=== PATIENT | male | born 1950 | race Caucasian/White ===

== ENCOUNTER 2017-04-19 07:23 | Day surgery (SDC) | payer MEDICARE, MEDICAID ==
[2017-04-16 14:14] LABS: HEMATOCRIT 44.2 % (39.2-51.8); HEMOGLOBIN 14.6 g/dL (13.7-18.0); WHITE BLOOD COUNT 6.5 x10^3/uL (3.4-10)
[2017-04-16 14:23] LABS: ASPARTATE AMINO TRANSFERASE 12 U/L (15-37); BLOOD UREA NITROGEN 18 mg/dL (7-18)
[~2017-04-19] VITALS: Ht 185.4 cm; Wt 94.5 kg
[~2017-04-19 07:23] MED LIST: AMLO2.5T2 PO; ASPI-496 PO; CLON1PAT9 TD; DOCU250C9 PO; DOXA8TAB2 PO; FINA5TAB4 PO; LISI40TA PO; MAGN200T PO; MV-M1TAB3 PO; POTA10TA5 PO; SPIR50TA2 PO
[2017-04-19] MEDS ORDERED: LACTATED RINGERS 1,000 ML IV SCH (08:04)
[2017-04-19 08:20] VITALS: BP 161/95
[2017-04-19] MEDS ORDERED: FENTANYL PF 100 MCG/2ML ONE ×3 (09:01→10:38)
[2017-04-19] MEDS ORDERED: MIDAZOLAM 1 MG/ML, 2ML ONE (09:02)
[2017-04-19] MEDS ORDERED: PROPOFOL 10 MG/ML, 20ML ONE (09:02)
[2017-04-19] MEDS ORDERED: NEOSTIGMINE 1 MG/ML, 10ML ONE (09:04)
[2017-04-19] MEDS ORDERED: ROCURONIUM 10 MG/ML,10ML ONE (09:04)
[2017-04-19] MEDS ORDERED: GLYCOPYRROLATE 0.4 MG/2 ML, 2ML ONE (09:05)
[2017-04-19] MEDS ORDERED: CEFOTETAN 2 GM ONE (09:46)
[2017-04-19] MEDS ORDERED: ACETAMINOPHEN 325 MG TABLET PO PRN (10:00)
[2017-04-19] MEDS ORDERED: PROMETHAZINE 25 MG/ML, 1ML IV PRN (10:00)
[2017-04-19] MEDS ORDERED: LABETALOL 5MG/ML, 20ML IV PRN (10:00)
[2017-04-19] MEDS ORDERED: hydrALAzine 20 MG/ML, 1ML IV PRN (10:00)
[2017-04-19] MEDS ORDERED: HYDROmorphone 1 MG/ML, 1ML IV PRN (10:00)
[2017-04-19] MEDS ORDERED: MEPERIDINE/PF 25MG/0.5ML IVPush PRN (10:00)
[2017-04-19] MEDS ORDERED: OXYcodone 5 MG/5 ML ORAL.SOL UDC PO PRN (10:00)
[2017-04-19] MEDS ORDERED: ONDANSETRON 2MG/ML, 2ML IVPush PRN (10:00)
[2017-04-19] MEDS ORDERED: LABETALOL 5MG/ML, 20ML ONE (10:02)
[2017-04-19] MEDS ORDERED: ACETAMINOPHEN 650 MG/20.3 ML UDC ONE (10:37)
[2017-04-19] MEDS ORDERED: hydrALAzine 20 MG/ML, 1ML ONE (10:37)
[2017-04-19] MEDS ORDERED: ACETAMINOPHEN 325 MG TABLET ONE (10:38)
[2017-04-19] MEDS ORDERED: OXYcodone 5 MG/5 ML ORAL.SOL UDC ONE (10:38)
[2017-04-19] MEDS: FENTANYL PF 100 MCG/2ML IV PRN ×3 (10:47→11:06)
== END 2017-04-19 13:05 ==
LOC: OUT 07:23
PROVIDERS: ATTEND Surgery
DX: K63.89 Other specified diseases of intestine (principal); L72.0 Epidermal cyst; I10 Essential (primary) hypertension; F17.210 Nicotine dependence, cigarettes, uncomplicated; Z98.890 Other specified postprocedural states; Z79.82 Long term (current) use of aspirin
CPT/HCPCS: 36415; 46922; 80053; 85025; 88304; 93005; J0360; J2250; J2704; J2710; J3010; J7120; S0074